=== PATIENT | female | born 1945 | race Caucasian/White ===

== ENCOUNTER 2018-04-03 14:27 | Emergency (ER) | payer OTHER ==
[2018-04-03] MEDS ORDERED: LIDOCAINE 2% MPF 5 ML VIAL ONE (15:24)
--- NOTE | 2018-04-03 16:46 | RAD REPORT ---
EXAM DESCRIPTION: RAD - Foot Right 3 View - 04/03/2018 4:31 pm CLINICAL HISTORY: injury Traumatic laceration to foot COMPARISON: No comparisons FINDINGS: No acute fracture is seen. No radiopaque foreign body is evident.
--- NOTE | 2018-04-03 16:52 | ER ---
Nurse's Notes [facility] Name: Monica Heart Age: 73 yrs Sex: Female : 1945 Arrival Date: 04/03/2018 Time: 14:33 Bed 16 Private MD: Diagnosis: Foot laceration Presentation: 04/03 14:34 Presenting complaint: EMS states: pt was cleaning, and repositioning china dishes at sg her home, when a dish was dropped, broken and cut her right foot, pt reports copious amount of bleeding noted and that bleeding was difficult to control at home, a dressing that is dirty is noted to the right foot applied by EMS. Transition of care: patient was not received from another setting of care. Complicating Factors: There are no complicating factors for this patient. Onset of symptoms was April 03, 2018. Risk Assessment: Do you want to hurt yourself or someone else? Patient reports no desire to harm self or others. Initial Sepsis Screen: Does the patient have a suspected source of infection? No. Patient's initial sepsis screen is negative. Care prior to arrival: Bleeding of injury controlled. Injury dressed. 14:34 Method Of Arrival: EMS: [facility] sg 14:34 Acuity: TED 4 sg Historical: - Allergies: 14:39 Sulfa (Sulfonamide Antibiotics); sg 14:39 Codeine; sg 14:39 Darvocet-N 100; sg 14:39 Robaxin; sg - Home Meds: 14:39 BP med [Active]; sg - PMHx: 14:39 Hypertension; sg - PSHx: 14:39 Hysterectomy; Appendectomy; sg - Immunization history:: Last tetanus immunization: up to date February 2017. - Social history:: Smoking status: Patient/guardian denies using tobacco. - Ebola Screening: : Patient negative for fever greater than or equal to 101.5 degrees Fahrenheit, and additional compatible Ebola Virus Disease symptoms Patient denies exposure to infectious person Patient denies travel to an Ebola-affected area in the 21 days before illness onset No symptoms or risks identified at this time. Screenin:17 Abuse screen: Denies threats or abuse. Nutritional screening: No deficits noted. la1 Tuberculosis screening: No symptoms or risk factors identified. Fall Risk None identified. Assessment: 16:16 General: Appears in no apparent distress. Behavior is. la1 16:16 Pain: Complains of pain in dorsum of right foot. Neuro: Level of Consciousness is la1 awake, alert, obeys commands, Oriented to person, place, time, situation. Cardiovascular: Heart tones S1 S2 present. Respiratory: Airway is patent Respiratory effort is even, unlabored, Respiratory pattern is regular, symmetrical, Breath sounds are clear bilaterally. GI: No signs and/or symptoms were reported involving the gastrointestinal system. : No signs and/or symptoms were reported regarding the genitourinary system. Musculoskeletal: Circulation, motion, and sensation intact. Capillary refill < 3 seconds, Range of motion: intact in all extremities. Injury Description: Laceration sustained to dorsum of right foot is clean, superficial, 0.5 to 2.5 cm long, not bleeding. Vital Signs: 14:40 Pulse 72; Resp 17; Pulse Ox 97% on R/A; Pain 4/10; sg 14:41 BP 114 / 82; Temp 97.8; sg 17:09 BP 121 / 74; Pulse 84; Resp 16; Temp 98.7; Pulse Ox 100% on R/A; la1 ED Course: 14:33 Patient arrived in ED. sg 14:36 Triage completed. sg 14:36 Arm band placed on. sg 14:50 Ray Diez PA is PHCP. [facility] 14:50 Prakash Nicole MD is Attending Physician. [facility] 16:16 [employer], TERRI is Primary Nurse. la1 16:17 Bed in low position. Call light in reach. la1 16:25 X-ray completed. Portable x-ray completed in exam room. Patient tolerated procedure la2 well. 16:31 Foot Right 3 View XRAY In Process Unspecified. EDMS 17:09 No provider procedures requiring assistance completed. Patient did not have IV access la1 during this emergency room visit. Administered Medications: No medications were administered Outcome: 16:52 Discharge ordered by MD. [facility] 17:09 Discharged to home ambulatory. la1 17:09 Condition: stable 17:09 Discharge instructions given to patient, Instructed on discharge instructions, follow up and referral plans. medication usage, Demonstrated understanding of instructions, follow-up care, medications, Prescriptions given X 1. 17:10 Patient left the ED. la1 Signatures: Dispatcher [employer] EDMS Marquis Pedersen RN RN sg Ray Diez PA PA jmm Attema, Lee, RN RN la1 Bernie Avila2 Corrections: (The following items were deleted from the chart) 14:36 14:34 Acuity: TED 3 dario bishop
--- NOTE | 2018-04-03 16:52 | EDPHYS ---
Physician Documentation [facility] Name: Monica Heart Age: 73 yrs Sex: Female : 1945 Arrival Date: 04/03/2018 Time: 14:33 Bed 16 Private MD: ED Physician Prakash Nicole HPI: 04/03 15:14 This 73 yrs old Female presents to ER via EMS with complaints of Laceration jmm To Foot. 15:14 The patient has a laceration related to:. Onset: The symptoms/episode began/occurred jmm acutely, just prior to arrival. This is a 73 year old female that presents to the ED with a laceration to her right foot. Patient states her china cabinet fell on her foot. Denies other injury. Patient is UTD on tetanus immunization . Historical: - Allergies: 14:39 Sulfa (Sulfonamide Antibiotics); sg 14:39 Codeine; sg 14:39 Darvocet-N 100; sg 14:39 Robaxin; sg - Home Meds: 14:39 BP med [Active]; sg - PMHx: 14:39 Hypertension; sg - PSHx: 14:39 Hysterectomy; Appendectomy; sg - Immunization history:: Last tetanus immunization: up to date February 2017. - Social history:: Smoking status: Patient/guardian denies using tobacco. - Ebola Screening: : Patient negative for fever greater than or equal to 101.5 degrees Fahrenheit, and additional compatible Ebola Virus Disease symptoms Patient denies exposure to infectious person Patient denies travel to an Ebola-affected area in the 21 days before illness onset No symptoms or risks identified at this time. ROS: 15:14 Constitutional: Negative for fever, chills, and weight loss, Cardiovascular: Negative jmm for chest pain, palpitations, and edema, Respiratory: Negative for shortness of breath, cough, wheezing, and pleuritic chest pain. 15:14 MS/extremity: Positive for pain. 15:14 Skin: Positive for laceration(s). 15:14 All other systems are negative. Exam: 15:14 Head/Face: atraumatic. Eyes: EOMI, no conjunctival erythema appreciated ENT: Moist jmm Mucus Membranes Neck: Trachea midline, Supple Chest/axilla: Normal chest wall appearance and motion. Cardiovascular: Regular rate and rhythm. No edema appreciated Respiratory: Normal respirations, no respiratory distress appreciated Abdomen/GI: Non distended, soft Back: Normal ROM 15:14 Constitutional: The patient appears in no acute distress, alert, awake. 15:14 Musculoskeletal/extremity: dorsum of the right foot is TTP, no obvious deformity appreciated, full dorsalis pedis pulse appreciated, NVI. 15:14 Skin: 1.5 cm laceration noted to the dorsal surface of the foot, no active bleeding is appreciated. 15:14 Neuro: Orientation: is normal, Mentation: is normal, Memory: is normal, Gait: is steady. 15:14 Psych: Behavior/mood is pleasant, cooperative. Vital Signs: 14:40 Pulse 72; Resp 17; Pulse Ox 97% on R/A; Pain 4/10; sg 14:41 BP 114 / 82; Temp 97.8; sg 17:09 BP 121 / 74; Pulse 84; Resp 16; Temp 98.7; Pulse Ox 100% on R/A; la1 Laceration: 17:11 Wound Repair of 1.5cm ( 0.6in ) subcutaneous laceration to dorsum of right foot. Distal jmm neuro/vascular/tendon intact. Anesthesia: Local anesthetic administered with 3 mls of 1% lidocaine. Wound prep: Simple cleansing with betadine by me. Skin closed with 3 5-0 Prolene using simple sutures and sterile technique. Patient tolerated well. MDM: 15:14 Patient medically screened. [facility] 16:51 Data reviewed: vital signs, nurses notes. Counseling: I had a detailed discussion with alton the patient and/or guardian regarding: the historical points, exam findings, and any diagnostic results supporting the discharge/admit diagnosis, radiology results, the need for outpatient follow up, to return to the emergency department if symptoms worsen or persist or if there are any questions or concerns that arise at home. 17:12 Data interpreted: Pulse oximetry: on room air is 100 %. Interpretation: normal. ED [facility] course: Patient given wound infection return precautions. . 04/03 15:15 Order name: Foot Right 3 View XRAY; Complete Time: 16:50 jm Administered Medications: No medications were administered Disposition: 04/04 09:58 Co-signature as Attending Physician, Prakash Nicole MD. ma2 Disposition: 04/03/18 16:52 Discharged to Home. Impression: Foot laceration. - Condition is Stable. - Discharge Instructions: Laceration Care, Adult. - Prescriptions for Cephalexin 500 mg Oral Capsule - take 1 capsule by ORAL route every 6 hours for 7 days; 28 capsule. - Medication Reconciliation Form, Thank You Letter, Antibiotic Education, Prescription Opioid Use form. - Follow up: Private Physician; When: 1 week; Reason: Recheck today's complaints, Continuance of care, Staple/Suture removal, Re-evaluation by your physician. Signatures: Dispatcher [employer] EDMarquis Azul RN RN Ray Alan PA PA jmm Attema, Lee, RN RN la1 Prakash Nicole MD MD ma2 Corrections: (The following items were deleted from the chart) 04/03 17:10 16:52 04/03/2018 16:52 Discharged to Home. Impression: Foot laceration. Condition is la1 Stable. Forms are Medication Reconciliation Form, Thank You Letter, Antibiotic Education, Prescription Opioid Use. Follow up: Private Physician; When: 1 week; Reason: Recheck today's complaints, Continuance of care, Staple/Suture removal, Re-evaluation by your physician. denise
== END 2018-04-03 17:10 | disposition home or self-care (01) ==
LOC: ER 14:27
PROC: 0JQQ0ZZ Repair Right Foot Subcutaneous Tissue and Fascia, Open Approach (ICD-10-PCS; principal; 2018-04-03)
DX: S91.311A Laceration without foreign body, right foot, initial encounter (principal); W22.8XXA Striking against or struck by other objects, initial encounter; Y93.9 Activity, unspecified; Y92.009 Unspecified place in unspecified non-institutional (private) residence as the place of occurrence of the external cause; Z88.2 Allergy status to sulfonamides; Z88.5 Allergy status to narcotic agent; Z88.8 Allergy status to other drugs, medicaments and biological substances; I10 Essential (primary) hypertension
CPT/HCPCS: 99283

== ENCOUNTER 2018-06-06 11:24 | Emergency (ER) | payer OTHER ==
--- NOTE | 2018-06-06 13:48 | RAD REPORT ---
EXAM DESCRIPTION: US - Extremity Venous Uni Ltd - 06/06/2018 1:28 pm CLINICAL HISTORY: Right leg pain COMPARISON: None. TECHNIQUE: Real-time sonographic evaluation of the right lower extremity deep venous systems was per formed. FINDINGS: Normal compressibility, flow augmentation, phasic flow and spontaneous flow are identified in the right lower extremity common femoral, superficial femoral, popliteal and posterior tibial vei ns. No intraluminal filling defects seen. IMPRESSION: No DVT in the right lower extremity.
--- NOTE | 2018-06-06 13:56 | EDPHYS ---
Physician Documentation [facility] Name: Monica Heart Age: 73 yrs Sex: Female : 1945 Arrival Date: 06/06/2018 Time: 11:30 Bed 5 Private MD: Adrián Morataya ED Physician Monroe Valencia HPI: 06/06 14:17 This 73 yrs old Female presents to ER via Ambulatory with complaints of Leg gs Pain. 14:17 The complaints affect the medial aspect of right calf, right [place] and anterior aspect gs of right ankle. Onset: The symptoms/episode began/occurred 2 day(s) ago. Modifying factors: the symptoms are aggravated by movement. Associated signs and symptoms: Pertinent negatives fever, rash, warmth, weakness. Severity of symptoms: At their worst the symptoms were moderate, in the emergency department the symptoms are unchanged. The patient has experienced a previous episode, and the symptoms today are exactly the same, dvt. Historical: - Allergies: 11:50 Codeine; aa5 11:50 Darvocet-N 100; aa5 11:50 Robaxin; aa5 11:50 Sulfa (Sulfonamide Antibiotics); aa5 - Home Meds: 11:50 BP med [Active]; aa5 - PMHx: 11:50 Hypertension; aa5 - PSHx: 11:50 Hysterectomy; Appendectomy; aa5 - Immunization history:: Adult Immunizations unknown. - Social history:: Smoking status: Patient/guardian denies using tobacco. - Ebola Screening: : No symptoms or risks identified at this time. ROS: 14:17 All other systems are negative. gs Exam: 14:17 Head/Face: Normocephalic, atraumatic. Eyes: Pupils equal round and reactive to light, gs extra-ocular motions intact. Lids and lashes normal. Conjunctiva and sclera are non-icteric and not injected. Cornea within normal limits. Periorbital areas with no swelling, redness, or edema. ENT: Nares patent. No nasal discharge, no septal abnormalities noted. Tympanic membranes are normal and external auditory canals are clear. Oropharynx with no redness, swelling, or masses, exudates, or evidence of obstruction, uvula midline. Mucous membranes moist. Neck: Trachea midline, no thyromegaly or masses palpated, and no cervical lymphadenopathy. Supple, full range of motion without nuchal rigidity, or vertebral point tenderness. No Meningismus. Chest/axilla: Normal chest wall appearance and motion. Nontender with no deformity. No lesions are appreciated. Cardiovascular: Regular rate and rhythm with a normal S1 and S2. No gallops, murmurs, or rubs. Normal PMI, no JVD. No pulse deficits. Respiratory: Lungs have equal breath sounds bilaterally, clear to auscultation and percussion. No rales, rhonchi or wheezes noted. No increased work of breathing, no retractions or nasal flaring. Abdomen/GI: Soft, non-tender, with normal bowel sounds. No distension or tympany. No guarding or rebound. No evidence of tenderness throughout. Back: No spinal tenderness. No costovertebral tenderness. Full range of motion. Skin: Warm, dry with normal turgor. Normal color with no rashes, no lesions, and no evidence of cellulitis. Neuro: Awake and alert, GCS 15, oriented to person, place, time, and situation. Cranial nerves II-XII grossly intact. Motor strength 5/5 in all extremities. Sensory grossly intact. Cerebellar exam normal. Normal gait. 14:17 Constitutional: The patient appears alert, awake. 14:17 Musculoskeletal/extremity: ROM: no acute changes, Pulses: are normal with no appreciated deficits, Sensation intact. DVT Exam: no swelling, no appreciated bluish discoloration, no erythema, no increased warmth, pain, tenderness, positive Homans' sign noted on exam. Vital Signs: 11:50 BP 157 / 106; Pulse 60; Resp 16 S; Temp 98.8(TE); Pulse Ox 98% on R/A; Weight 58.97 kg aa5 (R); Height 5 ft. 4 in. (162.56 cm) (R); Pain 2/10; 11:50 Body Mass Index 22.31 (58.97 kg, 162.56 cm) aa5 MDM: 12:11 Patient medically screened. 14:17 Differential diagnosis: contusion, tendonitis, sprain,dvt. Data reviewed: vital signs, gs nurses notes. Counseling: I had a detailed discussion with the patient and/or guardian regarding: the historical points, exam findings, and any diagnostic results supporting the discharge/admit diagnosis, radiology results, the need for outpatient follow up. Response to treatment: the patient's symptoms have markedly improved after treatment. 06/06 12:12 Order name: US Extremity Venous Unilateral Ltd; Complete Time: 13:50 gs Administered Medications: No medications were administered Disposition: 06/06/18 13:56 Discharged to Home. Impression: Pain in lower leg. - Condition is Stable. - Discharge Instructions: Musculoskeletal Pain. - Medication Reconciliation Form, Thank You Letter, Antibiotic Education, Prescription Opioid Use form. - Follow up: Private Physician; When: 2 - 3 days; Reason: Re-evaluation by your physician. Signatures: Dispatcher [employer] EDKassi Reina RN RN aa5 Yari Flores RN RN ss Monroe Valencia MD MD gs Corrections: (The following items were deleted from the chart) 14:04 13:56 06/06/2018 13:56 Discharged to Home. Impression: Pain in lower leg. Condition is ss Stable. Forms are Medication Reconciliation Form, Thank You Letter, Antibiotic Education, Prescription Opioid Use. Follow up: Private Physician; When: 2 - 3 days; Reason: Re-evaluation by your physician. gs
--- NOTE | 2018-06-06 13:56 | ER ---
Nurse's Notes [facility] Name: Monica Heart Age: 73 yrs Sex: Female : 1945 Arrival Date: 06/06/2018 Time: 11:30 Bed 5 Private MD: Adrián Morataya Diagnosis: Pain in lower leg Presentation: 06/06 11:49 Presenting complaint: Patient states: pain to posterior aspect of right leg that began aa5 evening. Pt states "I've had a blood clot in my right leg before". Transition of care: patient was not received from another setting of care. Onset of symptoms was May 2018. Risk Assessment: Do you want to hurt yourself or someone else? Patient reports no desire to harm self or others. Initial Sepsis Screen: Does the patient meet any 2 criteria? No. Patient's initial sepsis screen is negative. Does the patient have a suspected source of infection? No. Patient's initial sepsis screen is negative. Care prior to arrival: None. 11:49 Method Of Arrival: Ambulatory aa5 11:49 Acuity: TED 3 aa5 Historical: - Allergies: 11:50 Codeine; aa5 11:50 Darvocet-N 100; aa5 11:50 Robaxin; aa5 11:50 Sulfa (Sulfonamide Antibiotics); aa5 - Home Meds: 11:50 BP med [Active]; aa5 - PMHx: 11:50 Hypertension; aa5 - PSHx: 11:50 Hysterectomy; Appendectomy; aa5 - Immunization history:: Adult Immunizations unknown. - Social history:: Smoking status: Patient/guardian denies using tobacco. - Ebola Screening: : No symptoms or risks identified at this time. Vital Signs: 11:50 BP 157 / 106; Pulse 60; Resp 16 S; Temp 98.8(TE); Pulse Ox 98% on R/A; Weight 58.97 kg aa5 (R); Height 5 ft. 4 in. (162.56 cm) (R); Pain 2/10; 11:50 Body Mass Index 22.31 (58.97 kg, 162.56 cm) aa5 ED Course: 11:30 Patient arrived in ED. rg4 11:30 Adrián Morataya DO is Private Physician. rg4 11:48 Arm band placed on. aa5 11:49 Triage completed. aa5 11:53 Monroe Valencia MD is Attending Physician. gs 12:15 Anthony Saleh, RN is Primary Nurse. jl7 13:20 Patient taken to ultrasound. hr 13:20 Ultrasound completed. hr 13:29 US Extremity Venous Unilateral Ltd In Process Unspecified. EDMS 14:04 No provider procedures requiring assistance completed. Patient did not have IV access ss during this emergency room visit. Administered Medications: No medications were administered Outcome: 13:56 Discharge ordered by . gs 14:04 Discharged to home ambulatory. ss 14:04 Condition: good 14:04 Discharge instructions given to patient, Instructed on discharge instructions, follow up and referral plans. Demonstrated understanding of instructions, follow-up care. 14:04 Patient left the ED. ss Signatures: Dispatcher [employer] EDMS Jeanette Harper Audri, RN RN aa5 Yari Flores RN RN Sarahy Carr rg Anthony Saleh, TERRI RN jl7 Monroe Valencia MD MD
== END 2018-06-06 14:04 | disposition home or self-care (01) ==
LOC: ER 11:24
DX: M79.661 Pain in right lower leg (principal); I10 Essential (primary) hypertension; Z88.2 Allergy status to sulfonamides; Z88.5 Allergy status to narcotic agent; Z88.8 Allergy status to other drugs, medicaments and biological substances
CPT/HCPCS: 93971; 99284

== ENCOUNTER 2018-06-11 11:00 | Emergency (ER) | payer OTHER ==
[2018-06-11 11:59] LABS: Albumin 4.1 g/dL (3.4-5.0); Bilirubin Total 0.4 mg/dL (0.2-1.0); Potassium 4.2 mmol/L (3.5-5.1); Protein, Total 7.8 g/dL (6.4-8.2)
--- NOTE | 2018-06-11 12:14 | EDPHYS ---
Physician Documentation [facility] Name: Monica Heart Age: 73 yrs Sex: Female : 1945 Arrival Date: 06/11/2018 Time: 11:02 Bed 18 Private MD: Adrián Morataya ED Physician Facundo Morris HPI: 06/11 11:26 This 73 yrs old Female presents to ER via Ambulatory with complaints of Leg ps1 Pain. 11:26 patient has a history of DVT. Not on anticoagulation. Patient had a recent lower ps1 extremity US for DVT rule out this week which was negative. She states that the pain is localized behind the right leg, calf, and knee. Pain rated as mild to moderate, worse with movement. Not specifically in dorsiflexion of foot. No skin changes or unilateral leg swelling. Previously on eliquis. . Historical: - Allergies: 11:15 Codeine; hb 11:15 Darvocet-N 100; hb 11:15 Robaxin; hb 11:15 Sulfa (Sulfonamide Antibiotics); hb - Home Meds: 11:15 BP med [Active]; hb - PMHx: 11:15 Hypertension; DVT; hb - PSHx: 11:15 Hysterectomy; Appendectomy; hb - Immunization history:: Adult Immunizations up to date. - Social history:: Smoking status: Patient/guardian denies using tobacco. - Ebola Screening: : No symptoms or risks identified at this time. ROS: 11:26 Constitutional: Negative for fever, chills, and weight loss, Eyes: Negative for injury, ps1 pain, redness, and discharge, Cardiovascular: Negative for chest pain, palpitations, and edema, Respiratory: Negative for shortness of breath, cough, wheezing, and pleuritic chest pain, Abdomen/GI: Negative for abdominal pain, nausea, vomiting, diarrhea, and constipation, Back: Negative for injury and pain, Skin: Negative for injury, rash, and discoloration, Neuro: Negative for headache, weakness, numbness, tingling, and seizure. 11:26 MS/extremity: Positive for tenderness. Exam: 11:26 Constitutional: This is a well developed, well nourished patient who is awake, alert, ps1 and in no acute distress. Head/Face: Normocephalic, atraumatic. Eyes: Pupils equal round and reactive to light, extra-ocular motions intact. Lids and lashes normal. Conjunctiva and sclera are non-icteric and not injected. Chest/axilla: Normal chest wall appearance and motion. Nontender with no deformity. No lesions are appreciated. Cardiovascular: Regular rate and rhythm. No gallops, murmurs, or rubs. Normal PMI, no JVD. No pulse deficits. Respiratory: Lungs have equal breath sounds bilaterally, clear to auscultation and percussion. No rales, rhonchi or wheezes noted. No increased work of breathing, no retractions or nasal flaring. Abdomen/GI: Soft, non-tender, with normal bowel sounds. No distension or tympany. No guarding or rebound. No evidence of tenderness throughout. Skin: Warm, dry with normal turgor. Normal color with no rashes, no lesions, and no evidence of cellulitis. MS/ Extremity: Pulses equal, no cyanosis. Neurovascular intact. Full, normal range of motion. Neuro: Awake and alert, GCS 15, oriented to person, place, time, and situation. Cranial nerves II-XII grossly intact. Sensory grossly intact. Psych: Awake, alert, with orientation to person, place and time. Behavior, mood, and affect are within normal limits. Vital Signs: 11:15 BP 151 / 68; Pulse 65; Resp 16; Temp 97.9; Pulse Ox 100% on R/A; Pain 5/10; hb 12:31 BP 148 / 77; Pulse 69; Resp 19; Pulse Ox 99% on R/A; aj MDM: 12:04 Patient medically screened. ps1 12:08 Data reviewed: vital signs, nurses notes, old medical records, negative for DVT. lab ps1 test result(s), and as a result, I will discharge patient, encourage fluids. . 06/11 11:26 Order name: DD; Complete Time: 12:07 ps1 06/11 11:26 Order name: CMP; Complete Time: 12:07 ps1 Administered Medications: No medications were administered Disposition: 06/11/18 12:14 Discharged to Home. Impression: Pain in right lower leg. - Condition is Stable. - Discharge Instructions: Musculoskeletal Pain. - Medication Reconciliation Form, Thank You Letter, Antibiotic Education, Prescription Opioid Use form. - Follow up: Adrián Morataya DO; When: As needed; Reason: Further diagnostic work-up, Recheck today's complaints, Continuance of care, Re-evaluation by your physician. Follow up: Emergency Department; When: As needed; Reason: Worsening of condition. - Problem is an ongoing problem. - Symptoms are unchanged. Signatures: Dispatcher [employer] EDAngelique Butcher RN RN aj Baxter, Heather, RN RN hb Singer, Phillip, MD MD ps1 Corrections: (The following items were deleted from the chart) 12:33 12:14 06/11/2018 12:14 Discharged to Home. Impression: Pain in right lower leg. aj Condition is Stable. Forms are Medication Reconciliation Form, Thank You Letter, Antibiotic Education, Prescription Opioid Use. Follow up: Adrián Morataya; When: As needed; Reason: Further diagnostic work-up, Recheck today's complaints, Continuance of care, Re-evaluation by your physician. Follow up: Emergency Department; When: As needed; Reason: Worsening of condition. Problem is an ongoing problem. Symptoms are unchanged. ps1
--- NOTE | 2018-06-11 12:14 | ER ---
Nurse's Notes [facility] Name: Monica Heart Age: 73 yrs Sex: Female : 1945 Arrival Date: 06/11/2018 Time: 11:02 Bed 18 Private MD: Adrián Morataya Diagnosis: Pain in right lower leg Presentation: 06/11 11:12 Presenting complaint: Patient states: Right knee pain x 1 week, was recently seen in ED hb for same s/s, reports doppler negative. Hx of DVT, report pain feels similar. Transition of care: patient was not received from another setting of care. Onset of symptoms was June 11, 2018. Risk Assessment: Do you want to hurt yourself or someone else? Patient reports no desire to harm self or others. Initial Sepsis Screen: Does the patient meet any 2 criteria? No. Patient's initial sepsis screen is negative. Does the patient have a suspected source of infection? No. Patient's initial sepsis screen is negative. Care prior to arrival: None. 11:12 Method Of Arrival: Ambulatory hb 11:12 Acuity: TED 3 hb Historical: - Allergies: 11:15 Codeine; hb 11:15 Darvocet-N 100; hb 11:15 Robaxin; hb 11:15 Sulfa (Sulfonamide Antibiotics); hb - Home Meds: 11:15 BP med [Active]; hb - PMHx: 11:15 Hypertension; DVT; hb - PSHx: 11:15 Hysterectomy; Appendectomy; hb - Immunization history:: Adult Immunizations up to date. - Social history:: Smoking status: Patient/guardian denies using tobacco. - Ebola Screening: : No symptoms or risks identified at this time. Screenin:30 Abuse screen: Denies threats or abuse. Denies injuries from another. Nutritional aj screening: No deficits noted. Tuberculosis screening: No symptoms or risk factors identified. Fall Risk None identified. Assessment: 11:30 General: Appears in no apparent distress. comfortable, Behavior is calm, cooperative, aj appropriate for age. Pain: Complains of pain in right knee. Neuro: Level of Consciousness is awake, alert, obeys commands, Oriented to person, place, time, situation, Appropriate for age. Respiratory: Airway is patent Respiratory effort is even, unlabored, Respiratory pattern is regular, symmetrical. Derm: Skin is intact, is healthy with good turgor, Skin is pink, warm \T\ dry. normal. Vital Signs: 11:15 BP 151 / 68; Pulse 65; Resp 16; Temp 97.9; Pulse Ox 100% on R/A; Pain 5/10; hb 12:31 BP 148 / 77; Pulse 69; Resp 19; Pulse Ox 99% on R/A; aj ED Course: 11:02 Patient arrived in ED. mr 11:02 Adrián Morataya DO is Private Physician. mr 11:15 Triage completed. hb 11:15 Arm band placed on right wrist. hb 11:17 Facundo Morris MD is Attending Physician. ps1 11:30 Patient has correct armband on for positive identification. aj 11:30 Initial lab(s) drawn, by me, sent to lab. aj 12:00 Angelique Marin, RN is Primary Nurse. aj 12:13 Adrián Morataya DO is Referral Physician. ps1 12:31 No provider procedures requiring assistance completed. Patient did not have IV access aj during this emergency room visit. Administered Medications: No medications were administered Outcome: 12:14 Discharge ordered by . ps1 12:31 Discharged to home ambulatory. aj 12:31 Condition: good 12:31 Discharge instructions given to patient, Instructed on discharge instructions, follow up and referral plans. Demonstrated understanding of instructions, follow-up care. 12:33 Patient left the ED. aj Signatures: Angelique Marin, RN Jacquelyn Funez mr CoreasBrandy RN RN Facundo Morris MD MD ps1
== END 2018-06-11 12:33 | disposition home or self-care (01) ==
LOC: ER 11:00
DX: M79.661 Pain in right lower leg (principal); I10 Essential (primary) hypertension; Z79.899 Other long term (current) drug therapy; Z86.718 Personal history of other venous thrombosis and embolism
CPT/HCPCS: 36415; 80053; 85379; 99283